=== PATIENT | male | born 1945 | race American Indian/Alaskan Native ===

== ENCOUNTER 2017-06-16 10:53 | Day surgery (SDC) | payer MEDICARE ==
[~2017-06-16 10:53] MED LIST: ANCEF/STERILE WATER 2 GM/20 ML IV NR
[2017-06-16] MEDS ORDERED: ZOFRAN IV PRN (12:30)
[2017-06-16] MEDS ORDERED: DILAUDID IV PRN (12:30)
--- NOTE | 2017-06-16 12:32 | Anesthesia Consultation ---
Anesthesia Consult and Med Hx - Airway Anesthetic Teeth Evaluation: Chipped ROM Head & Neck: Adequate Mental/Hyoid Distance: Adequate Mallampati Class: Class II Intubation Access Assessment: Good - Pulmonary Exam CTA: Yes - Cardiac Exam Cardiac Exam: RRR - Pre-Operative Health Status ASA Pre-Surgery Classification: ASA3 Proposed Anesthetic Plan: General - Pulmonary Hx Smoking: Yes (STOPPED ) Hx Sleep Apnea: Yes (DX SLEEP APNEA , NO CPAP) - Cardiovascular System Hx Hypertension: (2002) - Hematic Hx Anemia: Yes (ON IRON) - Other Systems Hx Cancer: No
--- NOTE | 2017-06-16 12:33 | Anesthesia Day of Surgery ---
Anesthesia Day of Surgery - Day of Surgery Patient Examined: Yes Patient H&P Reviewed: Yes Patient is NPO: Yes
[2017-06-16] MEDS ORDERED: NACL 0.9% 1000 ML 1,000 ML IV SCH ×2 (13:00)
[2017-06-16] MEDS ORDERED: VERSED IV NR (13:00)
[2017-06-16] MEDS ORDERED: DIPRIVAN 10 MG/ML IV ONE (13:02)
[2017-06-16] MEDS ORDERED: XYLOCAINE MPF 2% ONE (13:05)
[2017-06-16] MEDS ORDERED: WATER FOR IRRIG STERILE IR ONE (13:34)
[2017-06-16] MEDS ORDERED: OMNIPAQUE (300 MG) IV ONE (13:37)
[2017-06-16] MEDS ORDERED: ZOFRAN ONE (13:58)
--- NOTE | 2017-06-16 14:14 | Short Stay Summary ---
Short Stay Documentation Date of service: 06/16/17 - History H&P: obtained from office - Allergies and Medications Current Medications: Allergies No Known Allergies Allergy (Verified 06/14/17 14:10) Home Medications Medication Instructions Recorded Confirmed Last Taken Type Amlodipine Besylate/Benazepril 1 each PO QDAY 06/14/17 06/14/17 Unknown History [Lotrel 10-40 mg] Aspirin [Lo-Dose Aspirin EC] 81 mg PO DAILY 06/14/17 06/14/17 Unknown History AtorvaSTATin [Lipitor] 20 mg PO QHS 06/14/17 06/14/17 Unknown History Cyanocobalamin (Vitamin B-12) 2,500 mcg PO Q48HR 06/14/17 06/14/17 Unknown History [Vitamin B12] Doxazosin Mesylate [Cardura] 2 mg PO DAILY 06/14/17 06/14/17 Unknown History Ferrous Sulfate 324 mg PO Q48HR 06/14/17 06/14/17 Unknown History Multivit-Min/FA/Lycopen/Lutein 1 each PO DAILY 06/14/17 06/14/17 Unknown History [Centrum Silver Tablet] glyBURIDE/METFORMIN HCL 1 each PO BID 06/14/17 06/14/17 Unknown History [Glyburide-Metformin 5-500 mg] Active Medications Cefazolin Sodium (Ancef/Sterile Water 2 Gm/20 Ml) 2 gm IV PREOP NR Stop: 06/16/17 21:00 Hydromorphone HCl (Dilaudid) 0.25 mg IV Q10MIN PRN PRN Reason: Pain, Moderate (4-6) Sodium Chloride (Nacl 0.9% 1000 Ml) 1,000 mls @ 100 mls/hr IV DIRECT JENNY Sodium Chloride (Nacl 0.9% 1000 Ml) 1,000 mls @ 100 mls/hr IV DIRECT JENNY Last Admin: 06/16/17 12:50 Dose: 100 mls/hr Midazolam HCl (Versed) 2 mg IV PREOP NR Stop: 06/16/17 23:59 Last Admin: 06/16/17 12:50 Dose: 2 mg Ondansetron HCl (Zofran) 4 mg IV ONCE PRN PRN Reason: Nausea And Vomiting - Brief post op/procedure progress note Date of procedure: 06/16/17 Pre-op diagnosis: left ureteral stone Post-op diagnosis: same Procedure: cysto, rpg, left ureteroscopy, laser, basket stone, stent with internal string Anesthesia: HUMAIRA Surgeon: KARELY JESSICA Estimated blood loss: none Condition: stable - Hospital course Hospital course: norco,wallyro, & post op info on chart stone given to brother - Disposition Condition at discharge: Stable Disposition: DC-01 TO HOME OR SELFCARE Short Stay Discharge Plan Follow up with: IRENE THOMAS MD [Primary Care Provider] - 7 Days
--- NOTE | 2017-06-16 15:24 | Operative Report ---
PREOPERATIVE DIAGNOSIS: Left 1 cm distal ureteral stone. POSTOPERATIVE DIAGNOSIS: Left 1 cm distal ureteral stone. PROCEDURE: Cystoscopy, bilateral retrograde pyelograms, left ureteroscopy, holmium laser lithotripsy, basket stone extraction, double-J stent (6-Serbian 24 cm with an internal string). SURGEON: Nigel Urbina MD ANESTHESIA: General. ESTIMATED BLOOD LOSS: Minimal. FLUIDS: Crystalloid. COMPLICATIONS: No complications. INDICATIONS: This 71-year-old gentleman seen in the office for left flank pain. CT of abdomen and pelvis found to have a 1 cm mid to distal ureteral stone with hydro. Discussed options. The patient agreed to proceed with surgical intervention. DESCRIPTION OF PROCEDURE: The patient was taken to the operative suite, placed in a supine position. After adequate general anesthesia, placed in a dorsal lithotomy position, prepped and draped in a sterile fashion. Pancystourethroscopy was performed with 22-Serbian Storz cystoscope. No bladder pathology. His prostate displayed moderate trilobar obstruction. His bladder, no tumors or stones were noted. Bilateral retrograde pyelograms were obtained with an 8-Serbian [place] catheter and 8 mL of contrast. No filling defects or obstruction on the right, obvious stone on the left distal ureter. was placed. Rigid ureteroscopy was performed. The stone was visualized. It was engaged with a 400 micron fiber. Holmium lithotripsy was performed starting at 4 thurman, going up to 10 thurman with fragmentation of the stone. Fragments were removed with a 3-Serbian Rosio basket. Ureteroscopy up to the renal pelvis. No other fragments could be appreciated. A 6-Serbian 24 cm double-J stent with an internal string was left indwelling. His bladder was drained. Rectal exam was benign. He was extubated and taken to recovery room in stable condition. He will go home on Mayvennro and ebookpie and follow up in the office. JOB# [id number] [facility]/NTS
[2017-06-16] MEDS ORDERED: NORCO 5/325 PO PRN (15:31)
[2017-06-16 17:23] VITALS: BP 144/69
--- NOTE | 2017-06-17 07:29 | Fluoroscopy Report ---
FLUOROSCOPY RETROGRADE UROGRAPHY: HISTORY: Left ureteral stone. FINDINGS: Fluoroscopy was provided by radiology during retrograde urography by the urologist. 12 fluoroscopic images were captured. The images demonstrate a filling defect in the distal left ureter near the level of S2 consistent with a mildly obstructing left ureteral stone. Holmium laser and lithotripsy were utilized. Basket extraction of the stone fragments was also performed. A left ureteral stent was placed which adequately drains the left collecting system on the final image. Correlate with the procedural report as needed. IMPRESSION: Left ureteral stone removal and left ureteral stent placement.
== END 2017-06-16 16:37 | disposition home or self-care (01) ==
LOC: OR 10:53
PROVIDERS: ATTEND Urology
DX: N13.2 Hydronephrosis with renal and ureteral calculous obstruction (principal); I10 Essential (primary) hypertension; G47.30 Sleep apnea, unspecified; Z79.899 Other long term (current) drug therapy; Z87.891 Personal history of nicotine dependence
CPT/HCPCS: 52356; 74420; 82962; A4217; C1758; C1769; J0690; J2250; J2405; J2704; J7030; Q9967